=== PATIENT | male | born 1995 | race African-American/Black ===

== ENCOUNTER 2022-12-15 13:24 | Emergency (ER) | payer OTHER ==
[~2022-12-15] VITALS: Ht 185.4 cm; Wt 68.0 kg
--- NOTE | 2022-12-15 14:00 | NUR ---
BIBS FOR HEADACHE. A/O X 3, ABLE TO MAKE NEEDS KNOWN, TOLERATING WELL ON ROOM AIR.
[2022-12-15] MEDS ORDERED: HYDR-4209 PO (15:40)
--- NOTE | 2022-12-15 15:52 | NUR ---
Patient discharged to home in stable condition. Written and verbal after care instructions given. Patient verbalizes understanding of instruction.
[2022-12-15 15:54] VITALS: BP 136/97
== END 2022-12-15 15:54 | disposition home or self-care (01) ==
LOC: ER 13:24
DX: S63.592A Other specified sprain of left wrist, initial encounter (principal); S09.8XXA Other specified injuries of head, initial encounter; V89.2XXA Person injured in unspecified motor-vehicle accident, traffic, initial encounter; Y93.89 Activity, other specified; Y92.89 Other specified places as the place of occurrence of the external cause; Y99.8 Other external cause status
CPT/HCPCS: 70450-TC; 73110